=== PATIENT | female | born 1940 | race Caucasian/White ===

== ENCOUNTER 2017-05-02 18:07 | Observation (INO) ==
[2017-05-02] MEDS ORDERED: DILTIAZEM 50 MG/10 ML VIAL IV STA ×2 (18:28→18:58)
[2017-05-02] MEDS ORDERED: DILTIAZEM INJ 100 MG in SODIUM CHLORIDE 0.9% 100 ML IV SCH (18:30)
[2017-05-02] MEDS ORDERED: DILTIAZEM 100 MG VIAL.ADD IV ONE (18:41)
[2017-05-02] MEDS ORDERED: DILTIAZEM 50 MG/10 ML VIAL IV ONE (18:41)
[2017-05-02] MEDS ORDERED: SODIUM CHLORIDE 0.9% 100 ML IV ONE (18:42)
[2017-05-02 18:59] LABS: Basophils # 0.1 10*3/uL (0.0-0.2); Basophils % 0.6 % (0.0-0.8); Eosinophils # 0.2 10*3/uL (0.0-0.87); Eosinophils % 2.6 % (0.00-10.9); Hematocrit 38.6 VOL% (35.7-47.0); Hemoglobin 12.6 GM/DL (12.0-16.0); Immature Granulocytes % 0.7 %; Immature Granulocytes Absolute 0.06 #; Lymphocytes # 3.4 10*3/uL (1.4-4.0); Lymphocytes % 39.7 % (21.3-54.2); Mean Corpuscular HGB Conc 32.6 GM/DL (32-36); Mean Corpuscular Hemoglobin 29 PG (27-34); Mean Corpuscular Volume 89.1 FL (87-102); Mean Platelet Volume 9.5 FL (9.6-12.0); Monocytes # 0.6 10*3/uL (0.11-0.8); Monocytes % 6.6 % (1.7-12.7); Neutrophils # 4.2 10*3/uL (1.4-7.4); Neutrophils % 49.8 % (38.7-73.9); Platelet Count 245 T/CUMM (130-400); Red Blood Count 4.33 MC/CUMM (3.8-5.5); Red Cell Distribution Width 16.4 % (9.3-17.3); White Blood Count 8.4 T/CUMM (4-12)
[2017-05-02 19:35] LABS: Alanine Aminotransferase 13 U/L (13-56); Albumin 3.5 G/DL (3.4-5.0); Alkaline Phosphatase 91 U/L (45-117); Aspartate Amino Transferase 13 U/L (0-37); Bilirubin,Total < 0.39 MG/DL (0.2-1.0); Blood Urea Nitrogen 20 MG/DL (7-18); Calcium 9.1 MG/DL (8.5-10.1); Glucose 99 MG/DL (74-106); Osmolality,Calculated 285.1 MOS/KG (273-304); Potassium 4.1 MMOL/L (3.5-5.1); Sodium 142 MMOL/L (136-145); Total Protein 6.9 G/DL (6.4-8.3); Troponin I Only < 0.015 NG/ML (0.00-0.045)
[2017-05-02 20:00] LABS: Barbiturates Screen,Urine Negative (Negative); Benzodiazepines Screen,Urine Negative (Negative); Cannabinoid Screen,Urine Negative (Negative); Opiate Screen,Urine Negative (Negative); Phencyclidine Screen,Urine Negative (Negative)
[2017-05-02] MEDS ORDERED: METOPROLOL TARTRATE 5 MG/5 ML VIAL IV STA (20:07)
[2017-05-02] MEDS ORDERED: METOPROLOL SUCCINATE XL 100 MG TABLET PO ONE (20:08)
[2017-05-02] MEDS ORDERED: METOPROLOL TARTRATE 5 MG/5 ML VIAL IV ONE ×2 (20:19→20:20)
[2017-05-02] MEDS ORDERED: clonazePAM 0.5 MG TABLET PO SCH (21:00)
[2017-05-02] MEDS ORDERED: ENOXAPARIN 40 MG/0.4 ML SYRINGE SUBCUT SCH (21:00)
[2017-05-02] MEDS: CARBIDOPA/LEVODOPA 25-250 MG TABLET PO SCH (21:57)
[2017-05-02] MEDS: MAGNESIUM CHLORIDE 64 MG TABLET PO SCH (21:57)
[2017-05-03] MEDS ORDERED: [UNRECOGNIZED DRUG - OTHER] PO SCH (09:00)
[2017-05-03] MEDS ORDERED: POTASSIUM CHLORIDE 10 MEQ TABLET PO SCH (09:00)
[2017-05-03] MEDS ORDERED: FAMOTIDINE 20 MG TABLET PO SCH (09:00)
[2017-05-03] MEDS ORDERED: ASPIRIN EC 81 MG TABLET PO SCH (09:00)
[2017-05-03] MEDS ORDERED: METOPROLOL SUCCINATE XL 100 MG TABLET PO SCH (09:00)
[2017-05-03] MEDS: MAGNESIUM CHLORIDE 64 MG TABLET PO SCH (09:27)
[2017-05-03] MEDS: CARBIDOPA/LEVODOPA 25-250 MG TABLET PO SCH (09:27)
[2017-05-03 12:37] VITALS: BP 96/49
== END 2017-05-03 13:40 | disposition home or self-care (01) ==
LOC: N.EDINP 18:07 → N.ED 18:07 → N.TELEN 20:39
PROVIDERS: ADMIT Internal Medicine; ATTEND Internal Medicine

== ENCOUNTER 2017-11-23 19:29 | Inpatient (IN) ==
[2017-11-23] MEDS ORDERED: SODIUM CHLORIDE 0.9% 1,000 ML IV STA (20:33)
[2017-11-23 20:52] LABS: Basophils % 0.5 % (0.0-0.8); Eosinophils # 0.3 10*3/uL (0.0-0.87); Eosinophils % 3.5 % (0.00-10.9); Hematocrit 41.9 VOL% (35.7-47.0); Immature Granulocytes % 0.5 %; Immature Granulocytes Absolute 0.04 #; Lymphocytes # 3.8 10*3/uL (1.4-4.0); Lymphocytes % 46.5 % (21.3-54.2); Mean Corpuscular Hemoglobin 28 PG (27-34); Mean Corpuscular Volume 88.8 FL (87-102); Mean Platelet Volume 10.1 FL (9.6-12.0); Monocytes # 0.6 10*3/uL (0.11-0.8); Monocytes % 7.8 % (1.7-12.7); Neutrophils # 3.4 10*3/uL (1.4-7.4); Neutrophils % 41.2 % (38.7-73.9); Platelet Count 271 T/CUMM (130-400); Red Blood Count 4.72 MC/CUMM (3.8-5.5); Red Cell Distribution Width 15.8 % (9.3-17.3); White Blood Count 8.2 T/CUMM (4-12)
[2017-11-23 20:59] LABS: INR 0.9
[2017-11-23 21:01] LABS: Alanine Aminotransferase 9 U/L (13-56); Alkaline Phosphatase 98 U/L (45-117); Aspartate Amino Transferase 16 U/L (0-37); Blood Urea Nitrogen 20 MG/DL (7-18); Calcium 9.2 MG/DL (8.5-10.1); Glucose 94 MG/DL (74-106); Osmolality,Calculated 281.4 MOS/KG (273-304); Potassium 3.9 MMOL/L (3.5-5.1); Sodium 140 MMOL/L (136-145); Total Protein 7.3 G/DL (6.4-8.3)
[2017-11-23 21:52] LABS: Apearance,Urine CLEAR (Clear); Bilirubin,Urine Negative (Negative); Blood, Urine Small mg/dL (Negative); Glucose,Urine (UA) Negative (Negative); Ketones,Urine 5 mg/dL (Negative); Mucus,Urine Occasional /LPF (Occasional); Nitrite,Urine Negative (Negative); Protein,Urine Negative; RBC,Urine 7 /HPF (0-4); Squamous Epithelial Cell,Urine Occasional /HPF (0-10); Urine Color Straw (Yellow); Urine Specific Gravity 1.008 (1.001-1.035); Urine Urobilinogen < 2.0 EU/DL (0.2-1.0); WBC,Urine 15 /HPF (0-6)
[2017-11-23] MEDS ORDERED: METOPROLOL TARTRATE 5 MG/5 ML VIAL IV STA (22:04)
[2017-11-23] MEDS ORDERED: cefTRIAXone 250 MG VIAL IV STA (22:04)
[2017-11-23] MEDS ORDERED: cefTRIAXone 1,000 MG VIAL ONE (22:13)
[2017-11-23] MEDS ORDERED: SODIUM CHLORIDE 0.9% 100 ML IV ONE (22:13)
[2017-11-23] MEDS ORDERED: SODIUM CHLOR 0.9% KCL 20 MEQ 20 MEQ/1,000 ML BAG IV SCH (22:30)
[2017-11-23] MEDS ORDERED: ONDANSETRON 4 MG/2 ML VIAL IV PRN (23:50)
[2017-11-23] MEDS ORDERED: SODIUM CHLORIDE 0.9% 1,000 ML IV SCH (23:50)
[2017-11-23] MEDS ORDERED: ACETAMINOPHEN 325 MG TABLET PO PRN (23:50)
[2017-11-24] MEDS: SODIUM CHLORIDE 0.9% 1,000 ML IV SCH ×2 (01:26→14:22)
[2017-11-24] MEDS ORDERED: DILTIAZEM INJ 100 MG in SODIUM CHLORIDE 0.9% 100 ML IV SCH (01:30)
[2017-11-24] MEDS ORDERED: GARLIQUE PO SCH (09:00)
[2017-11-24] MEDS ORDERED: METOPROLOL SUCCINATE XL 100 MG TABLET PO SCH (09:00)
[2017-11-24] MEDS: ASCORBIC ACID 500 MG TABLET PO SCH (09:14)
[2017-11-24] MEDS: ENOXAPARIN 40 MG/0.4 ML SYRINGE SUBCUT SCH (09:14)
[2017-11-24] MEDS: MAGNESIUM CHLORIDE 64 MG TABLET PO SCH ×2 (09:14→21:10)
[2017-11-24] MEDS: POTASSIUM CHLORIDE 20 MEQ TABLET PO SCH (09:14)
[2017-11-24] MEDS: PANTOPRAZOLE 40 MG TABLET PO SCH (09:14)
[2017-11-24] MEDS: ASPIRIN EC 81 MG TABLET PO SCH (09:14)
[2017-11-24] MEDS: CARBIDOPA/LEVODOPA 25-250 MG TABLET PO SCH ×3 (12:16→21:10)
[2017-11-24] MEDS: SOTALOL 80 MG TABLET PO SCH ×2 (14:55→21:10)
[2017-11-24] MEDS: clonazePAM 0.5 MG TABLET PO SCH (21:10)
[2017-11-25 04:30] LABS: Basophils % 0.6 % (0.0-0.8); Eosinophils # 0.2 10*3/uL (0.0-0.87); Eosinophils % 4.6 % (0.00-10.9); Hematocrit 37.2 VOL% (35.7-47.0); Hemoglobin 11.4 GM/DL (12.0-16.0); Immature Granulocytes % 0.6 %; Immature Granulocytes Absolute 0.03 #; Lymphocytes # 2.5 10*3/uL (1.4-4.0); Lymphocytes % 50.4 % (21.3-54.2); Mean Corpuscular HGB Conc 30.6 GM/DL (32-36); Mean Corpuscular Hemoglobin 27 PG (27-34); Mean Corpuscular Volume 88.2 FL (87-102); Mean Platelet Volume 9.5 FL (9.6-12.0); Monocytes # 0.4 10*3/uL (0.11-0.8); Monocytes % 7.5 % (1.7-12.7); Neutrophils # 1.8 10*3/uL (1.4-7.4); Neutrophils % 36.3 % (38.7-73.9); Platelet Count 194 T/CUMM (130-400); Red Blood Count 4.22 MC/CUMM (3.8-5.5); Red Cell Distribution Width 15.9 % (9.3-17.3)
[2017-11-25 05:16] LABS: Eosinophils 13 % (0-10); Hypochromasia 1+; Lymphocytes 44 % (20-55); Ovalocytes Slight; Platelet Estimate Adequate; Segmented Neutrophils 33 % (50-85); Total Cells Counted 100
[2017-11-25 05:29] LABS: Alanine Aminotransferase < 9 U/L (13-56); Albumin 3.3 G/DL (3.4-5.0); Alkaline Phosphatase 80 U/L (45-117); Aspartate Amino Transferase 11 U/L (0-37); Blood Urea Nitrogen 21 MG/DL (7-18); Calcium 9.1 MG/DL (8.5-10.1); Cholesterol 189 MG/DL (50-200); Free T4 (Free Thyroxine) 0.76 NG/DL (0.76-1.46); Glucose 79 MG/DL (74-106); HDL Cholesterol 38 MG/DL (40-60); Potassium 4.2 MMOL/L (3.5-5.1); Risk Ratio 4.97; Sodium 143 MMOL/L (136-145); Total Protein 6.2 G/DL (6.4-8.3); Triglycerides 186 MG/DL (2-150); VLDL CHOLESTEROL 37.2 MG/DL
[2017-11-25] MEDS: CARBIDOPA/LEVODOPA 25-250 MG TABLET PO SCH ×3 (08:38→21:34)
[2017-11-25] MEDS: ASCORBIC ACID 500 MG TABLET PO SCH (08:38)
[2017-11-25] MEDS: ENOXAPARIN 40 MG/0.4 ML SYRINGE SUBCUT SCH (08:38)
[2017-11-25] MEDS: PANTOPRAZOLE 40 MG TABLET PO SCH (08:38)
[2017-11-25] MEDS: MAGNESIUM CHLORIDE 64 MG TABLET PO SCH ×2 (08:38→21:34)
[2017-11-25] MEDS: ASPIRIN EC 81 MG TABLET PO SCH (08:39)
[2017-11-25] MEDS: POTASSIUM CHLORIDE 20 MEQ TABLET PO SCH (08:39)
[2017-11-25] MEDS: SOTALOL 80 MG TABLET PO SCH ×2 (08:39→21:34)
[2017-11-25] MEDS: clonazePAM 0.5 MG TABLET PO SCH (21:34)
[2017-11-26 03:47] LABS: Basophils % 0.5 % (0.0-0.8); Eosinophils # 0.2 10*3/uL (0.0-0.87); Eosinophils % 4.8 % (0.00-10.9); Hematocrit 36.9 VOL% (35.7-47.0); Hemoglobin 11.5 GM/DL (12.0-16.0); Immature Granulocytes % 0.5 %; Immature Granulocytes Absolute 0.02 #; Lymphocytes # 2.3 10*3/uL (1.4-4.0); Lymphocytes % 52.5 % (21.3-54.2); Mean Corpuscular HGB Conc 31.2 GM/DL (32-36); Mean Corpuscular Hemoglobin 28 PG (27-34); Mean Corpuscular Volume 88.3 FL (87-102); Mean Platelet Volume 9.4 FL (9.6-12.0); Monocytes # 0.4 10*3/uL (0.11-0.8); Monocytes % 8.6 % (1.7-12.7); Neutrophils # 1.5 10*3/uL (1.4-7.4); Neutrophils % 33.1 % (38.7-73.9); Platelet Count 177 T/CUMM (130-400); Red Blood Count 4.18 MC/CUMM (3.8-5.5); Red Cell Distribution Width 15.5 % (9.3-17.3); White Blood Count 4.4 T/CUMM (4-12)
[2017-11-26 04:03] LABS: Calcium 9.3 MG/DL (8.5-10.1); Osmolality,Calculated 282.3 MOS/KG (273-304); Potassium 3.9 MMOL/L (3.5-5.1)
[2017-11-26 04:36] LABS: Atypical Lymphocytes Moderate; Eosinophils 3 % (0-10); Lymphocytes 60 % (20-55); Platelet Estimate Adequate; Segmented Neutrophils 27 % (50-85); Total Cells Counted 100
[2017-11-26 04:37] LABS: Burr Cells Slight
[2017-11-26] MEDS: POTASSIUM CHLORIDE 20 MEQ TABLET PO SCH (09:03)
[2017-11-26] MEDS: ENOXAPARIN 40 MG/0.4 ML SYRINGE SUBCUT SCH (09:03)
[2017-11-26] MEDS: ASPIRIN EC 81 MG TABLET PO SCH (09:03)
[2017-11-26] MEDS: SOTALOL 80 MG TABLET PO SCH (09:03)
[2017-11-26] MEDS: PANTOPRAZOLE 40 MG TABLET PO SCH (09:03)
[2017-11-26] MEDS: CARBIDOPA/LEVODOPA 25-250 MG TABLET PO SCH (09:03)
[2017-11-26] MEDS: ASCORBIC ACID 500 MG TABLET PO SCH (09:03)
[2017-11-26] MEDS: MAGNESIUM CHLORIDE 64 MG TABLET PO SCH (09:03)
[2017-11-26 12:21] VITALS: BP 139/73
== END 2017-11-26 15:35 | disposition home or self-care (01) | DRG 309 ==
LOC: N.ED 19:29 → N.EDINP 19:29 → N.TELES 22:40
PROVIDERS: ADMIT Family Medicine; ATTEND Family Medicine